=== PATIENT | male | born 1975 | race African-American/Black ===

== ENCOUNTER 2016-04-26 17:17 | Emergency (ER) | payer OTHER ==
[~2016-04-26] VITALS: Ht 167.6 cm; Wt 85.0 kg
[~2016-04-26 17:17] MED LIST: AZIT250T74 PO; HYDR12.56 PO; LISI-360 PO; SERO200T PO; TYLE3 PO
[2016-04-26 17:27] VITALS: BP 165/87; PULSE 108; RESP 15; TEMP 99; O2SAT 98
[2016-04-26] MEDS ORDERED: SILVER SULFADIAZINE 1% CR 50 GM JAR TOPICAL ONE (18:30)
[2016-04-26] MEDS ORDERED: oxyCODONE/ACETAMINOPHEN 5 MG/325 MG TAB PO ONE (18:30)
[2016-04-26] MEDS ORDERED: BACT800T5 PO (18:31)
[2016-04-26] MEDS ORDERED: PERC5TAB12 PO (18:31)
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
== END 2016-04-26 19:27 | disposition home or self-care (01) ==
LOC: NEPE 17:17
DX: T24.202A Burn of second degree of unspecified site of left lower limb, except ankle and foot, initial encounter (principal); T31.0 Burns involving less than 10% of body surface; X03.8XXA Other exposure to controlled fire, not in building or structure, initial encounter
CPT/HCPCS: 16020; 99283; E0113

== ENCOUNTER 2016-04-29 10:51 | Emergency (ER) | payer OTHER ==
[~2016-04-29] VITALS: Ht 167.6 cm; Wt 82.0 kg
[~2016-04-29 10:51] MED LIST changes: -AZIT250T74 PO; +BACT800T5 PO; -HYDR12.56 PO; -LISI-360 PO; +PERC5TAB12 PO; -SERO200T PO; -TYLE3 PO
[2016-04-29 10:53] VITALS: BP 145/96; PULSE 114; RESP 20; TEMP 98.1; O2SAT 99
[2016-04-29] MEDS ORDERED: ULTR50TA5 PO ×2 (11:11→11:12)
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
[2016-04-29] MEDS ORDERED: KETOROLAC TROMETHAMINE 60 MG/2 ML (IM) VIAL IM ONE (11:15)
[2016-04-29] MEDS ORDERED: SILVER SULFADIAZINE 1% CR 50 GM JAR TOPICAL ONE (11:15)
== END 2016-04-29 11:43 | disposition home or self-care (01) ==
LOC: NEPB 10:51
DX: T24.202D Burn of second degree of unspecified site of left lower limb, except ankle and foot, subsequent encounter (principal); I10 Essential (primary) hypertension; F17.200 Nicotine dependence, unspecified, uncomplicated; Z86.79 Personal history of other diseases of the circulatory system; Z87.39 Personal history of other diseases of the musculoskeletal system and connective tissue; Z86.59 Personal history of other mental and behavioral disorders; X58.XXXD Exposure to other specified factors, subsequent encounter
CPT/HCPCS: 99282

== ENCOUNTER 2016-05-05 20:12 | Emergency (ER) | payer OTHER ==
[~2016-05-05] VITALS: Ht 167.6 cm; Wt 82.0 kg
[~2016-05-05 20:12] MED LIST changes: +ULTR50TA5 PO
[2016-05-05 20:13] VITALS: BP 142/100; PULSE 114; RESP 16; TEMP 98.2; O2SAT 99
[2016-05-05] MEDS ORDERED: NAPR500 PO (20:40)
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
[2016-05-05] MEDS ORDERED: SILVER SULFADIAZINE 1% CR 50 GM JAR TOPICAL ONE (20:45)
[2016-05-05] MEDS ORDERED: ACETAMINOPHEN/HYDROcodone 325 MG/5 MG TAB PO ONE (20:45)
[2016-05-05] MEDS ORDERED: SILV1CRE20 TOPICAL (20:52)
== END 2016-05-05 21:07 | disposition home or self-care (01) ==
LOC: NEPB 20:12
DX: T24.032A Burn of unspecified degree of left lower leg, initial encounter (principal); Z48.00 Encounter for change or removal of nonsurgical wound dressing; X08.8XXA Exposure to other specified smoke, fire and flames, initial encounter
CPT/HCPCS: 99282